=== PATIENT | female | born 1985 | race Caucasian/White ===

== ENCOUNTER → 2016-10-10 08:16 | Outpatient (CLI) | payer MEDICAID ==
[2016-08-13 15:23] VITALS: BMI 28.0
[~2016-10-10 08:16] MED LIST: AMBIEN10 MG PO; ARAVA10 MG PO; ATIVAN0.5 MG PO; CIMZIA400 MG/2 M SQ; DESERYL100 MG PO; DILAUDID2 MG PO; ELIQUIS2.5 MG PO; HUMIRA20 MG/0.4 SQ; HYDROCODONE-APA1 TAB PO; IBUPROFEN800 MG PO; LEXAPRO20 MG PO; NORCO 7.5/325 T1 TA1 PO; ORAPRED ODT10 MG/TAB PO; PERCOCET 10/3251 TA1 PO; PREDNISONE10 MG PO; ZANAFLEX4 MG PO; [UNRECOGNIZED DRUG - OTHER] PO
== END | disposition home or self-care (01) ==
LOC: D.NM 08:15
DX: M25.562 Pain in left knee (principal)

== ENCOUNTER → 2016-10-22 11:40 | Outpatient (CLI) | payer MEDICAID ==
[2016-08-13 15:23] VITALS: BMI 28.0
== END | disposition home or self-care (01) ==
LOC: D.MRI 11:00
DX: M54.16 Radiculopathy, lumbar region (principal)